=== PATIENT | male | born 1945 | race Caucasian/White ===

== ENCOUNTER 2018-11-17 10:39 | Outpatient (CLI) | payer MEDICARE, BC, SELFPAY ==
[2018-11-17 11:17] LABS: Abs Immature Grans 0.03 k/cumm (0.0-0.09); Absolute Basophil Count 0.05 k/cumm (0.0-0.2); Absolute Eosinophil Count 0.27 k/cumm (0.0-0.7); Absolute Lymphocyte Count 1.53 k/cumm (1.2-3.4); Absolute Monocyte Count 0.81 k/cumm (0.11-0.7); Absolute Neutrophil Count 7.76 k/cumm (1.2-6.7); Basophils % 0.5; Eosinophils % 2.6; HCT 43.3 % (40.0-50.0); Immature Grans % 0.3; Lymphocytes % 14.6; Mean Corp. HGB Concentration 34.6 g/dL (32.0-36.0); Mean Corpuscular Hemoglobin 33.7 pg (27.0-33.0); Mean Corpuscular Volume 97.3 fL (80-95); Mean Platelet Volume 8.9 fL (8.0-11.0); Monocytes % 7.8; Neutrophils % 74.2; Platelet Count 285 x1000/uL (130-400); RBC 4.45 m/cumm (4.50-6.00); RBC Distribution Width 12.2 % (11.8-14.1); White Blood Cell Count 10.45 k/cumm (4.4-10.8)
[2018-11-17 11:44] LABS: ALT 16 U/L (16-63); AST 16 U/L (15-37); Albumin 3.6 g/dL (3.4-5.0); Alkaline Phosphatase 73 U/L (46-116); Anion Gap 7.9 mmol/L (3-11); BUN 11 mg/dL (7-18); Bilirubin, Total 0.7 mg/dL (0.2-1.0); CO2 27.1 mmol/L (21.0-32.0); CREATININE 0.97 mg/dL (0.70-1.30); Calcium 8.7 mg/dL (8.5-10.1); Chloride 101 mmol/L (98-107); FREE T4 0.99 ng/dL (0.76-1.46); Glucose 105 mg/dL (70-100); LDH 208 U/L (85-227); Potassium 4.6 mmol/L (3.5-5.1); Sodium 136 mmol/L (136-145)
== END 2018-11-17 10:59 ==
PROVIDERS: PCP Internal Medicine; Visit Provider Registered Nurse Oncology
DX: C43.59 Malignant melanoma of other part of trunk (principal); Z79.899 Other long term (current) drug therapy
CPT/HCPCS: 36415; 80053; 83615; 84439; 84443; 85025

== ENCOUNTER 2018-12-15 08:53 | Outpatient (CLI) | payer MEDICARE, BC, SELFPAY ==
[2018-12-15 09:37] LABS: FREE T4 0.92 ng/dL (0.76-1.46)
[2018-12-15 10:58] LABS: Abs Immature Grans 0.06 k/cumm (0.0-0.09); Absolute Basophil Count 0.04 k/cumm (0.0-0.2); Absolute Eosinophil Count 0.24 k/cumm (0.0-0.7); Absolute Lymphocyte Count 1.78 k/cumm (1.2-3.4); Basophils % 0.3; Eosinophils % 1.8; HGB 15.1 g/dL (13.5-17.5); Immature Grans % 0.5; Lymphocytes % 13.4; Mean Corp. HGB Concentration 35.1 g/dL (32.0-36.0); Mean Corpuscular Hemoglobin 34.1 pg (27.0-33.0); Mean Corpuscular Volume 97.1 fL (80-95); Mean Platelet Volume 9.2 fL (8.0-11.0); Platelet Count 333 x1000/uL (130-400); RBC 4.43 m/cumm (4.50-6.00); RBC Distribution Width 12.1 % (11.8-14.1); White Blood Cell Count 13.32 k/cumm (4.4-10.8)
[2018-12-15 11:14] LABS: Absolute Neutrophil Count 9.99 k/cumm (1.2-6.7)
[2018-12-15 11:18] LABS: ALT 41 U/L (16-63); AST 42 U/L (15-37); Albumin 3.6 g/dL (3.4-5.0); Alkaline Phosphatase 125 U/L (46-116); Anion Gap 8.1 mmol/L (3-11); BUN 12 mg/dL (7-18); Bilirubin, Total 0.6 mg/dL (0.2-1.0); CO2 26.9 mmol/L (21.0-32.0); CREATININE 0.93 mg/dL (0.70-1.30); Calcium 9.1 mg/dL (8.5-10.1); Chloride 102 mmol/L (98-107); Glucose 110 mg/dL (70-100); LDH 553 U/L (85-227); Potassium 4.7 mmol/L (3.5-5.1); Sodium 137 mmol/L (136-145); TSH 2.05 uIU/mL (0.36-3.74); Total Protein 7.1 g/dL (6.4-8.2)
== END 2018-12-15 09:13 ==
PROVIDERS: PCP Internal Medicine; Visit Provider Registered Nurse Oncology
DX: C43.59 Malignant melanoma of other part of trunk (principal); Z79.899 Other long term (current) drug therapy
CPT/HCPCS: 36415; 80053; 83615; 84439; 84443; 85025